=== PATIENT | female | born 1950 | race Caucasian/White ===

== ENCOUNTER 2018-08-27 21:30 | Observation (INO) ==
[2018-08-27] MEDS ORDERED: ZOFRAN IV ONE (23:39)
[2018-08-27] MEDS ORDERED: MORPHINE IV ONE (23:39)
[2018-08-28] MEDS ORDERED: NS 2,000 ML ONE (00:03)
[2018-08-28 00:48] LABS: BASO# 0.01 X1000 (0.0-0.2); BASO% 0.2 % (0.0-0.8); EOS# 0.13 X1000 (0.0-0.7); EOS% 2.5 % (0.0-10.0); HEMATOCRIT 32.8 % (37.0-47.0); HEMOGLOBIN 11.1 g/dL (12.0-16.0); LYMPH# 2.42 X1000 (1.2-3.4); LYMPH% 47.5 % (20.5-51.1); MCH 30.7 PG (27-31); MCHC 33.8 g/dL (33-37); MCV 90.9 FL (81-99); MONO% 7.8 % (1.7-9.3); NEUT# 2.14 X1000 (1.4-6.5); PLT 238 X1000 (130-400); RBC 3.61 XMIL (4.2-5.4); RDW 12.5 % (11.5-14.5)
[2018-08-28 01:12] LABS: ALB/GLOB RATIO 1.5; ALBUMIN 4.4 g/dL (3.5-5.0); CALCIUM 9.4 mg/dL (8.8-10.2); CREATININE 1.7 mg/dL (0.5-0.9); TOTAL BILIRUBIN 0.27 mg/dL (0.20-1.00); TOTAL PROTEIN 7.4 g/dL (6.3-8.3)
[2018-08-28] MEDS ORDERED: BOOSTRIX VACCINE IM ONE (02:33)
[2018-08-28] MEDS ORDERED: TYLENOL PO PRN (03:03)
[2018-08-28] MEDS ORDERED: ZOFRAN IV PRN (03:03)
[2018-08-28] MEDS ORDERED: NS 1,000 ML IV ONE ×2 (03:26)
--- NOTE | 2018-08-28 04:20 | HISTORY AND PHYSICAL ---
CHIEF COMPLAINT: Fall. HISTORY OF PRESENT ILLNESS: Ms. Farnz is a 68-year-old female lying in the ER stretcher, alert and oriented x3, answers all questions appropriately. is at the bedside. She has a past medical history of hypertension and GERD. She sees Dr. Sun, primary care provider, as Dr. Brennon Sun, supervisor [employer], in [place] as her primary care providers. Tonight she had a fall that was not witnessed by her . She did hit her head. She did not have loss of consciousness. She is unsure what made her fall. She stated that she did not necessarily feel dizzy, she just was going to feed the dog. The next thing she knew she was laying on her side and she had hit the left side of her head. She did have a fairly significant laceration around 2-3 inches with moderate blood loss that required 8 jace in the emergency room. Around 15 minutes after receiving morphine she became hypotensive, received a 1 L bolus. Her blood pressure has normalized. We will recheck and hemoglobin and hematocrit and place the patient on observation status for further evaluation and treatment. PAST MEDICAL HISTORY: Hypertension and GERD. PREVIOUS SURGICAL HISTORY: Cholecystectomy, hysterectomy. SOCIAL HISTORY: Recently retired. 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 No illicit drugs. No tobacco. Occasional alcohol, less than drink per week. FAMILY HISTORY: Father had kidney disease, but also Alzheimer's. Mother I believe had a cardiomyopathy. ALLERGIES: No known drug allergies. HOME MEDICATIONS: Lisinopril, Pepcid and Protonix. REVIEW OF SYSTEMS: A 14-point review of systems was conducted with the patient. Pertinent positives listed above in the HPI. All other systems reviewed and found to be negative. PHYSICAL EXAMINATION: VITAL SIGNS: Temperature 98, pulse 61, respirations 17, blood pressure 110/61, oxygen saturation 100% on room air. GENERAL: A pleasant 68-year-old female lying in the ER stretcher. Answers all questions appropriately. at bedside, very attentive. She is in no acute distress. HEENT: Head is normocephalic. Left laceration around 3 inches requiring 8 jace to the posterior portion of her head behind her left ear. The bleeding has been stopped. Pupils are equal, round, and reactive to light. Extraocular eye movements are intact. Sclerae are nonicteric. Conjunctivae are pink. Oral mucosa is moist. NECK: Supple. No JVD, no thyromegaly. Trachea is midline. No cervical lymphadenopathy. CARDIAC: S1 and S2 appreciated. No murmurs, gallops or rubs. LUNGS: Clear to auscultation bilaterally. No rhonchi, wheezes, or rales. Symmetric rise and fall with respirations. ABDOMEN: Soft, nondistended, nontender. Bowel sounds present in all 4 quadrants. Normoactive. No pulsatile masses. No organomegaly. EXTREMITIES: No cyanosis, clubbing or edema; 2+ pedal pulses bilaterally. GENITOURINARY: No bladder distention, patient voids, otherwise deferred. NEUROLOGICAL: Alert and oriented x3. Cranial nerves II through XII grossly intact. DIAGNOSTIC DATA: CT of the head: No acute intracranial process. LABORATORY DATA: Hemoglobin 11.1, hematocrit 32.8. BUN 33, creatinine 1.7. All other labs within normal limits. ASSESSMENT AND PLAN: 1. Fall with laceration. Check another hemoglobin and hematocrit. Check orthostatic blood pressure. The patient will be observed. It is probable she will be able to go home today. Followup with her normal primary care provider. 2. Chronic kidney disease stage 3. Patient is aware that she has chronic kidney function, however, I am unsure of her baseline. She was given 1 L of fluids in the emergency room. Will continue normal saline at 75 mL an hour. The patient I believe takes lisinopril; we will hold this at this time as she was mildly hypotensive and this can further confound kidney problems. 3. Hypertension. Normotensive at this time. Will continue to monitor. 4. Anemia. Unsure if this is related to acute blood loss, however, she did lose a moderate amount of blood. Will still check an anemia panel. As noted, will recheck hemoglobin and hematocrit. 5. Further recommendations per the patient's clinical course. Dictated by JAMEL Campbell for Emily Dobson MD cc: JAMEL Campbell MD Isabella Strickland, MD Warren Strickland Pt was independently assessed by me at bedside. Other a L. occipital stapled laceration, and mild pallor, there was nothing noted on exam. Continue with IVF and await H and H;if <25 consider transfusion. Estimated blood loss per patient's history around 3 pints. MTDD
[2018-08-28 04:37] LABS: HEMATOCRIT 26.7 % (37.0-47.0); HEMOGLOBIN 8.9 g/dL (12.0-16.0)
--- NOTE | 2018-08-28 07:04 | EKG Report ---
Test Performed on : 08/28/2018 02:17:00 AM Test Reason : CP Blood Pressure : / mmHG Vent. Rate : 060 BPM Atrial Rate : 060 BPM P-R Int : 186 ms QRS Dur : 076 ms QT Int : 434 ms P-R-T Axes : 021 015 056 degrees QTc Int : 434 ms Normal sinus rhythm. Low voltage QRS Borderline ECG No previous ECGs available Unconfirmed Result
--- NOTE | 2018-08-28 07:05 | Diag Imaging Result Doc PS360 ---
EXAM: CT HEAD/C-SPINE W/O CONTRAST 08/27/2018 HISTORY: Fall on head with scalp lac TECHNIQUE: This exam was performed using automated exposure control, adjustment of mA or kV according to patient size, and/or use of iterative reconstruction technique. COMMENT: Head: There is no evidence of mass effect, bleed, or abnormal extra-axial fluid collection. There is some minimal periventricular white matter lucency. The visualized paranasal sinuses are clear. The calvarium is intact. There is an apparent scalp laceration and small hematoma posteriorly on the left. Cervical spine: There is no evidence of fracture or dislocation or prevertebral soft tissue swelling. There is degenerative change in the anterior atlantoaxial joint. There is mild posterior osteophyte formation at C3-4 C4-5 and C5-6. There is some vacuum phenomenon at C5-6. This extends into a cyst on the left side of the upper endplate of C6. There is degenerative facet arthropathy at C3-4 C4-5 C5-6 and C6-7 on the left. Together with uncovertebral arthropathy, this produces foraminal stenosis on the left at C3-4, C4-5, and C5-6. IMPRESSION: No evidence of acute intracranial disease. Degenerative changes in the cervical spine as described. Electronically signed by jK Arriaza 08/28/2018 7:02 AM
[2018-08-28 07:09] LABS: BASO# 0.02 X1000 (0.0-0.2); BASO% 0.4 % (0.0-0.8); EOS# 0.11 X1000 (0.0-0.7); HEMATOCRIT 26.7 % (37.0-47.0); HEMOGLOBIN 8.8 g/dL (12.0-16.0); LYMPH# 1.85 X1000 (1.2-3.4); LYMPH% 33.2 % (20.5-51.1); MCH 29.7 PG (27-31); MCV 90.2 FL (81-99); MONO# 0.39 X1000 (0.11-0.59); MPV 10.6 FL (7.4-10.4); NEUT% 57.4 % (42.2-75.2); PLT 196 X1000 (130-400); RBC 2.96 XMIL (4.2-5.4); RDW 12.4 % (11.5-14.5); WBC 5.57 X1000 (4.8-10.8)
[2018-08-28 07:39] LABS: CREATININE 1.5 mg/dL (0.5-0.9); POTASSIUM 4.8 mmol/L (3.5-5.1)
[2018-08-28] MEDS: NS 1,000 ML IV SCH (08:18)
[2018-08-28] MEDS: PRILOSEC PO SCH (10:16)
[2018-08-28 20:37] LABS: URINE SOURCE CLEAN CATCH
[2018-08-28 20:48] LABS: BILIRUBIN URINE NEGATIVE (NEGATIVE); BLOOD URINE NEGATIVE (NEGATIVE); COLOR YELLOW; GLUCOSE URINE NEGATIVE (NEGATIVE); KETONE URINE NEGATIVE (NEGATIVE); LEUKOCYTES URINE TRACE (NEGATIVE); NITRITE URINE NEGATIVE (NEGATIVE); PH URINE 5.5; PROTEIN URINE NEGATIVE (NEGATIVE); SP GRAVITY URINE 1.014; TURBIDITY URINE CLEAR (CLEAR); UROBILINOGEN URINE NORMAL (NORMAL)
[2018-08-28 20:49] LABS: UR EPITHELIAL CELLS <10 /HPF (<10); URINE BACTERIA NEGATIVE /HPF; URINE RBC <10 /HPF (<10); URINE WBC <10 /HPF (<10)
[2018-08-29] MEDS: NS 1,000 ML IV SCH (01:50)
[2018-08-29 07:45] VITALS: BP 122/55
[2018-08-29] MEDS: PRILOSEC PO SCH (09:09)
--- NOTE | 2018-08-29 19:13 | DISCHARGE SUMMARY ---
ADMISSION DATE: 08/28/2018 DISCHARGE DATE: 08/29/2018 DISPOSITION: Home. FOLLOWUP: 1. PCP, Dr. Maribel Sun. 2. Patrol Guard, Dr. Brennon Sun. CONSULTATIONS: During this admission, none. DIAGNOSTIC DATA: Imaging studies of significance: A CT scan of the head and neck showed no evidence of acute intracranial. There are some degenerative changes in the cervical spine. ADMISSION DIAGNOSES: 1. Fall with laceration. 2. Chronic kidney disease stage 3. 3. Hypertension. 4. Anemia. DISCHARGE DIAGNOSES: 1. Orthostatic hypotension. 2. Mechanical fall after hypotensive episode. 3. Chronic kidney disease stage 3A to 3B, chronic. 4. Anemia of chronic disease. 5. Laceration to scalp. This has been sutured. The patient is advised to follow up with primary care for the next 1 week for the jace to be removed. 6. History of episodic hypertension. PRESENTING COMPLAINT: Fall. HISTORY OF PRESENTING COMPLAINT: Ms. Franz is a 68-year-old female with history of episodic hypertension that her primary care doctor started her recently on hydrochlorothiazide with lisinopril combination. She was supposed to be taking it twice per day but she has been taking it only once, and according to her since then she has been sustaining multiple falls. It appears that any time it happens, blood pressures are low. The patient came to the emergency department after falling down, and upon presentation her orthostatics vital signs were positive. She has sustained some laceration to the left scalp, which was sutured in the ER. The patient was admitted for further medical care. HOSPITAL COURSE: Ms. Franz was admitted to the medical floor. She was adequately hydrated. Medications for blood pressures were withheld. She did pretty well during the hospital course. Her vital signs including blood pressures continued to be remarkably stable. This morning she feels a lot better. She has been up and walking. She has not sustained any more falls. Her EKG on admission was normal sinus rhythm with a rate of about 60. No ST or T-wave abnormality. Her telemonitor during the 24-hour hospital observation does not show any abnormality. Ms. Franz is therefore clinically stable for discharge. We withheld her blood pressure medications for now, and she has been advised to adequately hydrate herself and follow up with her primary care and her boiler cleaner. At the time of discharge, Ms. Franz is completely asymptomatic and she is happy that she has been discharged. All the discharge instructions have been discussed with her, and she voiced understanding. Time spent for discharge is 36 minutes. cc: Fermin Castellanos MD
--- NOTE | 2018-08-29 23:36 | PROVIDER DOCUMENTATION ---
This chart was entered by Jaclyn Sanford Scribe, acting as scribe for Aj Watson MD. HPI-Head Injury - General Chief Complaint: Head Injury Stated Complaint: LACERATION BACK OF HEAD/FALL Time Seen by Provider: 08/27/18 21:49 Source: patient, RN/MD Allergies/Adverse Reactions: Patient Allergies Allergy/AdvReac Type Severity Reaction Status Date / Time No Known Allergies Allergy Verified 08/27/18 22:51 Home Medications: Home Medication List Medication Instructions Recorded Confirmed Last Taken Type Diazepam 5 mg PO QHS 08/28/18 08/28/18 08/26/18 History Dicyclomine HCl 10 mg PO TID PRN 08/28/18 08/28/18 08/21/18 History Famotidine 40 mg PO QHS 08/28/18 08/28/18 08/26/18 History Omeprazole 1 cap PO QAM 08/28/18 08/28/18 08/28/18 History - History of Present Illness-Head Injury Nature of Presenting Problem: 68 yof presents to er w/ 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 pt remembers wanting to take a shower, and fell and hit left side of head on dining room chair. pt states she has a headache and has uncontrolled bleeding. pt denies taking blood thinners. pt took aleve earlier for shoulder pain. pt states she falls often 4-5/year. pt denies loc. Head Injury Location: reports: occipital (left) Review of Systems - Adult - REVIEW OF SYSTEMS - ADULT Constitutional: reports: no symptoms reported Eyes: reports: no symptoms reported Ears, Nose, Mouth & Throat: reports: no symptoms reported Cardiovascular: reports: no symptoms reported Respiratory: reports: no symptoms reported Gastrointestinal: reports: no symptoms reported Genitourinary: reports: no symptoms reported Musculoskeletal: reports: no symptoms reported Integumentary: reports: no symptoms reported Neurological: reports: see HPI, headache/migraines, loss of balance (fall), other (lac on left occipital). denies: dizziness/vertigo, seizure, slurred speech, syncope, tremors Psychiatric: reports: no symptoms reported Past History - Adult - PAST MEDICAL HISTORY-ADULT Review of Records: reports: Old Records Reviewed, Nursing Assessment Review, Medications Reviewed, Social history reviewed & non-contributory. Major Childhood Illnesses: reports: denies history Cardiovascular: reports: denies history Respiratory: reports: denies history Gastrointestinal: reports: denies history Obstetrical/Gynecological: reports: denies history Genitourinary: reports: denies history Musculoskeletal: reports: denies history Neurological: reports: denies history Endocrine/Immune: reports: denies history Other Conditions: reports: denies history - IMMUNIZATION STATUS Childhood Immunizations: See Nurse Assessment Flu Vaccine: See Nurse Assessment - FAMILY HISTORY Family History: reviewed, not pertinent Physical Exam- Neurological - Physical Exam-Neuro Initial Vital Signs Reviewed: Yes General Appearance: alert, mild distress. negative: slow to respond, obtunded, combative Eye Exam: bilateral eye: normal inspection, PERRL, EOMI HENMT: moist mucous membranes, normal ENT inspection Head Injury: no evidence of injury, active bleeding, lacerations (4 cm left to occipital). 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 negative: abnormal eye position, abnormal gag reflex, abnormal pupil position, abnormal speech, facial asymmetry, facial droop, facial paresthesias, facial weakness, gaze palsy Coordination/Gait: normal finger to nose Motor/Sensory: no motor deficit, no sensory deficit, no pronator drift Neurologic: credit operations processor II-XII nml as tested, grossly normal, no motor/sensory deficits, negative romberg's sign. negative: motor weakness, sensory deficit Integumentary: normal color, normal turgor, warm/dry Psych/Mental Status: oriented x 3 - Glascow Coma Scale Best Eye Response: (4) open spontaneously Best Verbal Response: (5) oriented Best Motor Response: (6) obeys commands Total Glascow Score: 15 Progress - PLAN OF CARE/RESULTS Progress/Plan/Lab Results: Orders Category Date Time Status Admit [facility] Routine AdmDCTranf 08/28/18 03:03 Active Activity - Up with Assistance ORDERED Care 08/28/18 03:03 Active Apply Mechanical Device [QM] ORDERED Care 08/28/18 03:03 Active Intake and Output-Strict ORDERED Care 08/28/18 03:03 Active Orthostatic Vital Signs Q6-HR ASSESS Care 08/28/18 03:11 Active Update & Confirm Home Medicati ROUTINE Care 08/28/18 03:02 Completed Vital Signs Order Q 8-HR ASSESS Care 08/28/18 03:03 Active Z-Document. for Tele Applied ORDERED Care 08/28/18 03:03 Completed Regular Diet Diet 08/28/18 03:[address] HEAD/C-SPINE W/O CONTRAST [CT] Stat Exams 08/27/18 22:05 Completed BASIC METABOLIC PANEL [CHEM] Routine Lab 08/28/18 06:41 Completed CBC WITH DIFF [HEME] Routine Lab 08/28/18 06:41 Completed CBC WITH ELECTRONIC DIFF [HEME] Stat Lab 08/28/18 00:33 Completed COMPREHENSIVE METABOLIC PANEL [CHEM] Stat Lab 08/28/18 00:33 Completed H/H [HGB AND HCT] [HEME] Stat Lab 08/28/18 04:08 Completed TROPONIN T Stat Lab 08/28/18 00:33 Completed TSH Routine Lab 08/28/18 06:41 Completed TYPE & SCREEN [BBK] Stat Lab 08/28/18 00:30 Completed 0.9% Sodium Chloride Inj [Ns] 1,000 ml Med 08/28/18 00:03 Discontinued .ROUTE As directed 0.9% Sodium Chloride Inj [Ns] 1,000 ml Med 08/28/18 03:26 Discontinued IV 250 mls/hr 0.9% Sodium Chloride Inj [Ns] 1,000 ml Med 08/28/18 03:15 Discontinued IV 75 mls/hr 0.9% Sodium Chloride Inj [Ns] 1,000 ml Med 08/28/18 00:00 Discontinued IV 999 mls/hr Acetaminophen [Tylenol] Med 08/28/18 03:03 Discontinued 650 mg PO Q6H PRN PRN Diph,Pertuss(Acell),Tet Vac/Pf [Boostrix Vaccine] Med 08/28/18 02:33 Discontinued 0.5 ml IM .ONCE ONE Morphine Med 08/27/18 23:39 Discontinued 4 mg IV NOW ONE Omeprazole [Prilosec] Med 08/28/18 09:00 Discontinued 40 mg PO DAILY Ondansetron [Zofran] Med 08/27/18 23:39 Discontinued 4 mg IV NOW ONE Ondansetron [Zofran] Med 08/28/18 03:03 Discontinued 4 mg IV Q4H PRN PRN Telemetry [OM.EQ] Routine Oth 08/28/18 03:03 Active EKG [EKG] Routine Ther 08/29/18 08:00 Ordered EKG [EKG] Stat Ther 08/28/18 00:34 Draft Transfer/Admit Order [TRANSFER] Routine Transfer 08/28/18 03:06 Completed Patient reassessed Multiple times during ER stay. Fall/ Scalp lac with bleeding, BP drop to 90s/60s and then improved, need admission for observation over the night Patient care, assessment and plan discussed with attending physician Dr. Brock and he agree with the plan as documented. Result Diagrams: 08/28/18 06:41 08/28/18 06:41 - CONSULTS/PCP/HOSPITALIST Notification #1 *Consult/PCP/Hospitalist*: Dr. Dobson Time Discussed: 02:34 Consult Disposition: Admit (Hx, PE and patient care discussed, accepted.) Procedures - LACERATION/WOUND REPAIR/FB Lateral Occipital Wound Length: 4cm Wound's Depth, Shape: linear Wound Explored/Foreign Body: clean Irrigated with Saline?: Yes Prepped with: Betadine, Hibiclens Wound Repaired with: Wayne-Large (8 jace) Number of Sutures: 8 Layer Closure?: No Sterile Dressing Applied?: No Splint Applied?: No Post Procedure Neurovascular Exam: Intact Procedure Comment: Well tolerated. Departure - Departure Date of Disposition Decision: 08/28/18 Time of Disposition Decision: 02:33 DIAGNOSIS: Falls Qualifiers: Encounter type: initial encounter Qualified Code(s): W19.XXXA - Unspecified fall, initial encounter Scalp laceration Qualifiers: Encounter type: initial encounter Qualified Code(s): S01.01XA - Laceration without foreign body of scalp, initial encounter Disposition: ADMITTED INPATIENT 09 Certified Medical Emergency: Emergent Condition: Stable - Critical Care Note This patient required my direct & personal management of CC.: No Attestation - Physician/ MAGGY Attestation Patient care was provided by Advanced Practice Provider:: No The physician spent face to face time with patient:: Yes Advanced Practice Provider documentation review:: Supervising physician onsite and consulted in the evaluation and care of this patient. The physician did have a face to face encounter with the patient. This chart was documented by the indicated scribe, (Jaclyn Sanford, Lul) and accurately reflects the services I performed and decisions made by me, Aj Martin MD, as attested by the provider's signature.
--- NOTE | 2018-08-31 07:13 | EKG Report ---
Test Performed on : 08/29/2018 06:19:09 AM Test Reason : chest pain Blood Pressure : / mmHG Vent. Rate : 063 BPM Atrial Rate : 063 BPM P-R Int : 194 ms QRS Dur : 078 ms QT Int : 398 ms P-R-T Axes : 034 013 073 degrees QTc Int : 407 ms Normal sinus rhythm. Low voltage QRS Cannot rule out Anterior infarct , age undetermined Abnormal ECG When compared with ECG of 28-AUG-2018 02:17, (Unconfirmed) No significant change was found Confirmed by Helena MEJIA, Fuentes ([id number]) on 08/31/2018 8:47:41 AM
== END 2018-08-29 15:44 | disposition home or self-care (01) ==
LOC: ED 21:30 → EDIPHOLD 08-28 04:39 → SUATTDRO 08-28 04:39 → INTOOBSV 08-28 04:39 → 3N 08-28 14:28
PROVIDERS: ATTEND Internal Medicine
CPT/HCPCS: 70450; 72125; 80048; 80053; 81001; 84443; 84484; 85014; 85018; 85025; 86850; 86900; 86901; 87088; 90471; 90715; 93005; 93010; 96361; 96374; 96375; 99285; A9270; J2270; J2405; J7030